=== PATIENT | female | born 1945 | race Two or more races ===

== ENCOUNTER 2017-06-15 13:39 | Emergency (ER) | payer MEDICARE, BC ==
[~2017-06-15] VITALS: Ht 172.7 cm; Wt 81.6 kg
--- NOTE | 2017-06-15 13:48 | NUR ---
AAOX3, BIB DAUGHTER C/O BILATERAL HANDS AND KNEES LACERATION S/P GLF, PATIENT WAS HOLDING A GLASS WHEN SHE FELL TO THE GROUND. SKIN IS WARM AND DRY. RESP IS EVEN AND UNLABORED WITH NAD NOTED. PATIENT STATES THAT SHE'S UTD WITH TDAP. DR PIRES AT FOR EVAL.
--- NOTE | 2017-06-15 13:50 | NUR ---
PEDRO, EMT AT FOR WOUND CARE.
[2017-06-15] MEDS ORDERED: LIDOCAINE 1%-EPI 1:100,000 20 ML VIAL TP ONE (14:00)
[2017-06-15] MEDS ORDERED: TDAP [DIPH/PERTUSSIS/TET] 0.5 ML VIAL IM ONE ×2 (14:00→14:06)
[2017-06-15] MEDS ORDERED: LIDOCAINE 1%-EPI 1:100,000 50 ML VIAL IJ ONE (14:05)
[2017-06-15 16:35] VITALS: BP 138/85
--- NOTE | 2017-06-15 16:35 | NUR ---
Patient discharged to home in stable condition. Written and verbal after care instructions given. Patient verbalizes understanding of instruction.
== END 2017-06-15 16:36 | disposition home or self-care (01) ==
LOC: ER 13:42
DX: S61.412A Laceration without foreign body of left hand, initial encounter (principal); S81.011A Laceration without foreign body, right knee, initial encounter; S81.012A Laceration without foreign body, left knee, initial encounter; Z88.8 Allergy status to other drugs, medicaments and biological substances; W19.XXXA Unspecified fall, initial encounter; Y93.89 Activity, other specified; Y92.89 Other specified places as the place of occurrence of the external cause; Y99.8 Other external cause status
CPT/HCPCS: 12004; 73130 ×2; 90471; 90715; 99284; A4606; A6403 ×3; J3490; Z7610